=== PATIENT | male | born 1985 | race Caucasian/White ===

== ENCOUNTER 2018-07-17 08:04 | Outpatient (REF) | payer BC, SELFPAY ==
[2018-07-17 13:19] LABS: ALT 38 U/L (12-78); AST 23 U/L (15-37); Albumin 4.2 g/dL (3.4-5.0); Alkaline Phosphatase 57 U/L (46-116); Anion Gap 6.9 mmol/L (3-11); BUN 22 mg/dL (7-18); Bilirubin, Total 0.4 mg/dL (0.2-1.0); CO2 30.1 mmol/L (21.0-32.0); CREATININE 1.18 mg/dL (0.70-1.30); Calcium 9.6 mg/dL (8.5-10.1); Chloride 102 mmol/L (98-107); Glucose 111 mg/dL (70-100); Potassium 4.4 mmol/L (3.5-5.1); Sodium 139 mmol/L (136-145); Total Protein 7.6 g/dL (6.4-8.2)
== END 2018-07-17 08:24 ==
LOC: NCHCN 08:04
PROVIDERS: PCP Nurse Practitioner; Visit Provider Nurse Practitioner
DX: I10 Essential (primary) hypertension (principal)
CPT/HCPCS: 80053

== ENCOUNTER 2020-04-07 09:54 | Outpatient (REF) | payer BC, SELFPAY ==
[2020-04-07 18:38] LABS: ALT 34 U/L (16-63); AST 21 U/L (15-37); Albumin 4.3 g/dL (3.4-5.0); Alkaline Phosphatase 59 U/L (46-116); Anion Gap 8.4 mmol/L (3-11); BUN 19 mg/dL (7-18); Bilirubin, Total 0.3 mg/dL (0.2-1.0); CO2 29.6 mmol/L (21.0-32.0); CREATININE 1.07 mg/dL (0.70-1.30); Calcium 9.3 mg/dL (8.5-10.1); Chloride 103 mmol/L (98-107); Glucose 107 mg/dL (74-106); Potassium 4.3 mmol/L (3.5-5.1); Sodium 141 mmol/L (136-145); Total Protein 8.2 g/dL (6.4-8.2)
== END 2020-04-07 10:14 ==
LOC: NCHCN 09:54
PROVIDERS: PCP Nurse Practitioner; Visit Provider Nurse Practitioner
DX: I10 Essential (primary) hypertension (principal)
CPT/HCPCS: 80053

== ENCOUNTER 2021-06-09 08:37 | Outpatient (REF) | payer BC, SELFPAY ==
[2021-06-09 14:45] LABS: ALT 61 U/L (16-63); AST 30 U/L (15-37); Albumin 4.7 g/dL (3.4-5.0); Alkaline Phosphatase 59 U/L (46-116); Anion Gap 10.6 mmol/L (3-11); BUN 22 mg/dL (7-18); Bilirubin, Total 0.3 mg/dL (0.2-1.0); CO2 26.4 mmol/L (21.0-32.0); CREATININE 1.2 mg/dL (0.70-1.30); Chloride 101 mmol/L (98-107); Glucose 106 mg/dL (74-106); Potassium 4.7 mmol/L (3.5-5.1); Sodium 138 mmol/L (136-145); Total Protein 8.3 g/dL (6.4-8.2)
== END 2021-06-09 08:38 | disposition home or self-care (01) ==
LOC: NCHCN 08:37
PROVIDERS: PCP Nurse Practitioner; Visit Provider Nurse Practitioner
DX: I10 Essential (primary) hypertension (principal)
CPT/HCPCS: 80053

== ENCOUNTER 2022-03-05 16:30 | Outpatient (REF) | payer BC, SELFPAY ==
[2022-03-05 19:56] LABS: ALT 63 U/L (16-63); AST 36 U/L (15-37); Albumin 4.3 g/dL (3.4-5.0); Alkaline Phosphatase 55 U/L (46-116); Anion Gap 9.5 mmol/L (3-11); BUN 16 mg/dL (7-18); Bilirubin, Total 0.5 mg/dL (0.2-1.0); CO2 29.5 mmol/L (21.0-32.0); Calcium 9.6 mg/dL (8.5-10.1); Chloride 101 mmol/L (98-107); Estimated GFR 101.28 (mL/min/1.73m2); Glucose 92 mg/dL (74-106); Potassium 3.9 mmol/L (3.5-5.1); Sodium 140 mmol/L (136-145); Total Protein 8.6 g/dL (6.4-8.2)
== END 2022-03-05 16:31 | disposition home or self-care (01) ==
LOC: NCHCN 16:30
PROVIDERS: PCP Nurse Practitioner; Visit Provider Nurse Practitioner Family
DX: I10 Essential (primary) hypertension (principal)
CPT/HCPCS: 80053

== ENCOUNTER → 2023-05-06 18:35 | Outpatient (CLI) | payer BC, SELFPAY ==
--- NOTE | 2023-05-06 15:11 | DI.RAD_ITS ---
Exam(s) XR ANKLE RT COMPLETE XR FOOT RT COMPLETE EXAM: XR ANKLE RT COMPLETE CLINICAL HISTORY: RT ANKLE PAIN M25.571. TECHNIQUE: 2D digital imaging was performed. Three views of the foot and three views of the ankle. COMPARISON: CR XR FOOT RT COMPLETE from 05/06/2023 FINDINGS: BONES: No acute fracture is present. No bony destructive lesion is seen. JOINTS: The ankle mortise is normally aligned. Joint spaces are maintained. No significant degener ative changes. SOFT TISSUE: Swelling around malleoli. Small elongated soft tissue calcification adjacent to medial malleolus appears chronic. IMPRESSION: Soft tissue swelling around the malleoli, otherwise unremarkable radiographs of the right ankle and f oot. DATA REPOSITORY: RADIATION DOSE DELIVERED:
== END ==
PROVIDERS: PCP Nurse Practitioner; Visit Provider Nurse Practitioner Family
DX: R22.41 Localized swelling, mass and lump, right lower limb (principal); M25.571 Pain in right ankle and joints of right foot
CPT/HCPCS: 73610; 73630

== ENCOUNTER 2023-05-27 15:08 | Outpatient (REF) | payer BC, SELFPAY ==
--- OUTSIDE RECORDS SUMMARY | 2023-05-27 15:11 | XMS_ITS | Continuity of Care Document ---
Author Name Unknown Organization [facility] Address [address] [place] [address] Encounter [facility] FIN NBR [id number] Date(s): 04/09/23 - 04/09/23 [facility] [address] [place] [address]- [place] Encounter Diagnosis Right ankle sprain(Discharge Diagnosis) - 04/09/23 Discharge Disposition: Home f/u Internal Provider Attending Physician: Jose Armando Brady MD Admitting Physician: Jose Armando Brady MD Allergies, Adverse Reactions, Alerts No Known Allergies Functional Status 04/09/23 Family Member Travel History No recent t ravel Recent Travel History No recent travel Other exposure to Infectious Disease Non e Medications Fish Oil 500 mg oral capsule 0 Refill(s) Start Date: 04/09/23 Status: Ordered lisinopril 20 mg oral tablet 20 mg = 1 tab, Oral, Daily, # 30 tab, 0 Refill(s) Start Date: 04/09/23 Status: Ordered Mental Status 04/09/23 Eye Opening Response [place] Spontaneous ly Best Verbal Response Shaun Oriented Best Motor Response Shaun Obeys comman ds Shaun Coma Score 15 Results Radiology Reports * Exam Date Time Procedure Performing Provider Status 04/09/23 8:45 PM XR Ankle Complete 3+ Views Right Beth Mendenhall; Natalia (Verified) Notes: (XR Ankle Complete 3+ Views Right) Reason For Exam: trauma XR Ankle Complete 3+ Views Right PROCEDURE INFORMATION: Exam: XR Right Ankle Exam date and time: 04/09/2023 8:38 PM Age: 37 years old Clinical indication: Pain; Ankle and foot; Right; Additional info: Trauma TECHNIQUE: Imaging protocol: Radiologic exam of the right ankle. Views: 3 or more views. COMPARISON: CR XR FOOT 3 VIEW RIGHT 04/09/2023 8:37 PM FINDINGS: Bones/joints: Bone density is satisfactory. Small chip fracture of the medial malleolus. Minimal distal fibular cortical irregularity. Soft tissues: Significant lateral hindfoot and lateral ankle swelling. Moderate medial ankle swelling. Tiny soft tissue calcifications noted medial midfoot area. IMPRESSION: 1. Possible avulsion fracture medial malleolus. Minimal distal lateral fibular cortical irregularity without definite fracture visible filter follow-up may be of benefit. 2. Significant mediolateral ankle swelling possible ligamentous injury. THIS DOCUMENT HAS BEEN ELECTRONICALLY SIGNED BY TONI CASTRO MD on 04/09/2023 10:05 PM Final Signed by: Toni Castro MD Signed (Electronic Signature): 04/09/2023 10:05 pm * Exam Date Time Procedure Performing Provider Status 04/09/23 8:45 PM XR Foot Complete 3+ Views Right Beth Baig; Auth (Verified) Notes: (XR Foot Complete 3+ Views Right) Reason For Exam: trauma XR Foot Complete 3+ Views Right PROCEDURE INFORMATION: Exam: XR Right Foot Exam date and time: 04/09/2023 8:37 PM Age: 37 years old Clinical indication: Pain; Ankle and foot; Right; Additional info: Trauma TECHNIQUE: Imaging protocol: Radiologic exam of the right foot. Views: 3 or more views. COMPARISON: No relevant prior studies available. FINDINGS: Bones/joints: Normal. Soft tissues: The significant lateral ankle swelling. IMPRESSION: Lateral ankle swelling. No acute foot fracture seen. THIS DOCUMENT HAS BEEN ELECTRONICALLY SIGNED BY TONI CASTRO MD on 04/09/2023 10:04 PM Final Signed by: Toni Castro MD Signed (Electronic Signature): 04/09/2023 10:04 pm Vital Signs Most recent to oldest [Reference Range]: 1 2 3 Temperature Temporal Artery [36-38 Deg C] 36.3 Deg C (04/09/23 8:00 PM) Peripheral Pulse Rate [60-100 bpm] 102 bpm *HI* (04/09/23 8:30 PM) 106 bpm *HI* (04/09/23 8:15 PM) 128 bpm *HI* (04/09/23 8:00 PM) Respiratory Rate [12-24 br/min] 16 br/min (04/09/23 8:00 PM) Blood Pressure [90-140/60-90 mmHg] 126/72mmHg (04/09/23 8:30 PM) 144/96mmHg *HI* (04/09/23 8:15 PM) 144/96mmHg *HI* (04/09/23 8:00 PM) Mean Arterial Pressure Cuff 89 mmHg (04/09/23 8:30 PM) 109 mmHg (04/09/23 8:15 PM) Weight 106.00 kg (04/09/23 8:00 PM) Weight Dosing 106.00 kg (04/09/23 8:08 PM) Height 185.000 cm (04/09/23 8:00 PM) Height/Length Dosing 185.000 cm (04/09/23 8:08 PM) Body Mass Index 31.000 kg/m2 (04/09/23 8:00 PM) Social History Social History Type Response Tobacco Never tobacco user T obacco Use:. Sex Hospital Discharge Instructions Patient Education 04/09/2023 19:50:47 Ankle Sprain Ankle Sprain An ankle sprain is a stretch or tear in a ligament in the ankle. Ligaments are tissues that connectbones to each other. The two most common types of ankle sprains are: ??? Inversion sprain. This happens when the foot turns inward and the ankle rolls outward. It affects the ligament on the outside of the foot (lateral ligament). ??? Eversion sprain. This happens when the foot turns outward and the ankle rolls inward. It affects the ligament on the inner side of the foot (medial ligament). What are the causes? This condition is often caused by accidentally rolling or twisting the ankle. What increases the risk? You are more likely to develop this condition if you play sports. What are the signs or symptoms? Symptoms of this condition include: ??? Pain in your ankle. ??? Swelling. ??? Bruising. This may develop right after you sprain your ankle or 1???2 days later. ??? Trouble standing or walking, especially when you turn or change directions. How is this diagnosed? This condition is diagnosed with: ??? A physical exam. During the exam, your health care provider will press on certain parts of yourfoot and ankle and try to move them in certain ways. ??? X-ray imaging. These may be taken to see how severe the sprain is and to check for broken bones. How is this treated? This condition may be treated with: ??? A brace or splint. This is used to keep the ankle from moving until it heals. ??? An elastic bandage. This is used to support the ankle. ??? Crutches. ??? Pain medicine. ??? Surgery. This may be needed if the sprain is severe. ??? Physical therapy. This may help to improve the range of motion in the ankle. Follow these instructions at home: If you have a brace or a splint: ??? Wear the brace or splint as told by your health care provider. Remove it only as told by your health care provider. ??? Loosen the brace or splint if your toes tingle, become numb, or turn cold and blue. ??? Keep the brace or splint clean. ??? If the brace or splint is not waterproof: ??? Do not let it get wet. ??? Cover it with a watertight covering when you take a bath or a shower. If you have an elastic bandage (dressing): ??? Remove it to shower or bathe. ??? Try not to move your ankle much, but wiggle your toes from time to time. This helps to prevent swelling. ??? Adjust the dressing to make it more comfortable if it feels too tight. ??? Loosen the dressing if you have numbness or tingling in your foot, or if your foot becomes coldand blue. Managing pain, stiffness, and swelling ??? Take azae-hms-pleopgo and prescription medicines only as told by your health care provider. ??? For 2???3 days, keep your ankle raised (elevated) above the level of your heart as much as possible. ??? If directed, put ice on the injured area: ??? If you have a removable brace or splint, remove it as told by your health care provider. ??? Put ice in a plastic bag. ??? Place a towel between your skin and the bag. ??? Leave the ice on for 20 minutes, 2???3 times a day. General instructions ??? Rest your ankle. ??? Do not use the injured limb to support your body weight until your health care provider says that you can. Use crutches as told by your health care provider. ??? Do not use any products that contain nicotine or tobacco, such as cigarettes, e-cigarettes, andchewing tobacco. If you need help quitting, ask your health care provider. ??? Keep all follow-up visits as told by your health care provider. This is important. Contact a health care provider if: ??? You have rapidly increasing bruising or swelling. ??? Your pain is not relieved with medicine. Get help right away if: ??? Your foot or toes become numb or blue. ??? You have severe pain that gets worse. Summary ??? An ankle sprain is a stretch or tear in a ligament in the ankle. Ligaments are tissues that connect bones to each other. ??? This condition is often caused by accidentally rolling or twisting the ankle. ??? Symptoms include pain, swelling, bruising, and trouble walking. ??? To relieve pain and swelling, put ice on the affected ankle, raise your ankle above the level of your heart, and use an elastic bandage. ??? Keep all follow-up visits as told by your health care provider. This is important. This information is not intended to replace advice given to you by your health care provider. Make sure you discuss any questions you have with your health care provider. Document Revised: 08/06/2021 Document Reviewed: 08/06/2021 [employer] Patient Education ?? 2022 [employer]. Follow Up Care 04/09/2023 20:00:50 With:Follow up with primary care provider Address:Unknown When:1 month With:Chapincito Curtis MD Address: [address] [place] [id number]- When:1 to 2 weeks Comments:Or one of his colleagues Physician Emergency department Note * Jose Armando Brady MD: PERFORM Event Display: ED Note Physician Authored Date: [id number] DREA BABCOCK :1985 Age:37 years Sex:Male Visit Date:04/09/2023 Basic Information Time Seen: Jose Armando Brady MD / 04/09/2023 20:03 Chief Complaint pt digging a hole steppe back into it felt a pop. has a golf ball sized hematoma on right ankle. History Of Present Illness: Healthy 37-year-old male??stepped into a hole??where he was going to pour some concrete heard a crunch??and has an unknown??other mechanism of injury to the foot. ??Unable to weight-bear since. ??Marked swelling immediately on the lateral aspect but pain also medially.?? Good distal sensation.?? Noother injury. Review of Systems: No head or neck injury. ??No knee injury. ??Mild knee pain. Physical Exam Vitals & Measurements T:??36.3?C ??(Temporal Artery)?? HR:??102??(Peripheral)?? RR:??16?? BP:??126/72?? SpO2:??95%?? HT:??185.000??cm?? WT:??106.00??kg?? BMI:??31.000?? Pain Score:??8?? O2 Therapy:??Room air?? Examination reveals dramatic swelling over the lateral malleolus completely obliterating it visually. ??Normal dorsalis pedis pulse. ??Normal cap refill.?? Hurts to move his toes.?? Pain over the medial malleolus with mild swelling. ??Pain over the base of the fifth metatarsal.?? No pain over the medial talus.?? Cannot manipulate the ankle due to pain and traumatic swelling.?? No ecchymoses. Medical Decision Making: X-rays reviewed by me of the ankle and foot revealing no evidence of fracture.?? Likely significantsprain.?? Patient given a boot due to the traumatic swelling,??has crutches, will move from furtherto full weightbearing as tolerated and follow-up once the swelling is down for more comprehensive re assessment in 5 to 10 days time with primary care or orthopedics. Procedure No Qualifying Data Assessment/Plan 1.??Right ankle sprain??S93.401A Elevation, ice, compression. ??Jed and cast boot. ??Crutches further to full weightbearing. ??Follow-up 5 to 10 days for reassessment??to decide on severity of ankle sprain is not able to assess withmarked swelling today.?? No evidence of fracture on x-ray Orders: XR Ankle Complete 3+ Views Right, 04/09/23 20:11:00 EDT, Stat, Reason: trauma, Transport Mode: Wheelchair XR Foot Complete 3+ Views Right, 04/09/23 20:11:00 EDT, Stat, Reason: trauma, Transport Mode: Wheelchair Patient Education Ankle Sprain Follow Up With When Contact Information Follow up with primary care provider Within 1 month Additional Instructions: Chapincito Curtis MD Within 1 to 2 weeks [address] [place] [address]- Additional Instructions: Or one of his colleagues Medication Reconciliation Unchanged lisinopril (lisinopril 20 mg oral tablet)1 tab Oral (given by mouth) every day. ?? omega-3 polyunsaturated fatty acids (Fish Oil 500 mg oral capsule) Problem List/Past Medical History Ongoing No qualifying data Historical No qualifying data Allergies No Known Allergies Social History Alcohol Current, Beer, 1-2 times per month Electronic Cigarette/Vaping Electronic Cigarette Use: Never. Tobacco Never tobacco user Tobacco Use:. Electronically Signed on 04/09/23 10:12 PM Jose Armando Brady MD Emergency department Discharge instructions * Jose Armando Brady MD: PERFORM Event Display: ED Discharge Information Authored Date: [id number] DREA BABCOCK :1985 Age:37 years Sex:Male Visit Date:04/09/2023 Discharge Instructions We would like to thank you for allowing us to assist you with your healthcare needs. The following includes patient education materials and information regarding your injury/illness. Diagnosis from Today's Visit Right ankle sprain Discharge Vitals Temperature??(Temporal Artery) 97.3 ??F (36.3 ??C) Heart Rate??(Peripheral) 102 Respiratory Rate?? 16 Blood Pressure?? 126/72?? Height?? 72.83 in (185.000 cm) Weight?? 233.73 lb (106.00 kg) BMI?? 31.000 Allergies No Known Allergies What to Do Next Instructions from Your Care Team [place]: You have a significant sprain of your right ankle. ??There is no evidence of fracture on x-ray which is reassuring. ??There is dramatic swelling. ??Keep it elevated??and keep some compression with an Jed wrap??and cast boot??use. ??Progressed from lightly touching down [feather weightbearing]??to full weightbearing as tolerated using her crutches.?? Follow-up once the swelling is down in 5 to 10 days with primary care or the [facility] orthopedics??for??reassessment to fully evaluate the degree of sprain. ??Because of the swelling this is not possible in the emergency department today. You Need to Schedule the Following Appointments Follow Up with??Follow up with primary care provider When:??Within 1 month Follow Up with??Chapincito Curtis MD When:??Within 1 to 2 weeks Why: Or one of his colleagues Where: [address] [place], [place] [id number] You were treated today on an emergency basis; it may be sorensen to contact your primary care provider to notify them of your visit today. You may have been referred to your regular doctor or a specialist, please follow up as instructed. If your condition worsens or you can't get in to see the doctor, contact the Emergency Department. Medications What How Much When Instructions Next Dose Unchanged lisinopril (lisinopril 20 mg oral tablet) 1 tab Oral (given by mouth) Every day Unchanged omega-3 polyunsaturated fatty acids (Fish Oil 500 mg oral capsule) Education Materials Ankle Sprain An ankle sprain is a stretch or tear in a ligament in the ankle. Ligaments are tissues that connectbones to each other. The two most common types of ankle sprains are: ? Inversion sprain. This happens when the foot turns inward and the ankle rolls outward. It affects the ligament on the outside of the foot (lateral ligament). ? Eversion sprain. This happens when the foot turns outward and the ankle rolls inward. It affects the ligament on the inner side of the foot (medial ligament). What are the causes? This condition is often caused by accidentally rolling or twisting the ankle. What increases the risk? You are more likely to develop this condition if you play sports. What are the signs or symptoms? Symptoms of this condition include: ? Pain in your ankle. ? Swelling. ? Bruising. This may develop right after you sprain your ankle or 1???2 days later. ? Trouble standing or walking, especially when you turn or change directions. How is this diagnosed? This condition is diagnosed with: ? A physical exam. During the exam, your health care provider will press on certain parts of your foot and ankle and try to move them in certain ways. ? X-ray imaging. These may be taken to see how severe the sprain is and to check for broken bones. How is this treated? This condition may be treated with: ? A brace or splint. This is used to keep the ankle from moving until it heals. ? An elastic bandage. This is used to support the ankle. ? Crutches. ? Pain medicine. ? Surgery. This may be needed if the sprain is severe. ? Physical therapy. This may help to improve the range of motion in the ankle. Follow these instructions at home: If you have a brace or a splint: ? Wear the brace or splint as told by your health care provider. Remove it only as told by your health care provider. ? Loosen the brace or splint if your toes tingle, become numb, or turn cold and blue. ? Keep the brace or splint clean. ? If the brace or splint is not waterproof: ? Do not let it get wet. ? Cover it with a watertight covering when you take a bath or a shower. If you have an elastic bandage (dressing): ? Remove it to shower or bathe. ? Try not to move your ankle much, but wiggle your toes from time to time. This helps to prevent swelling. ? Adjust the dressing to make it more comfortable if it feels too tight. ? Loosen the dressing if you have numbness or tingling in your foot, or if your foot becomes cold andblue. Managing pain, stiffness, and swelling ? Take yjxk-ctg-csquiyn and prescription medicines only as told by your health care provider. ? For 2???3 days, keep your ankle raised (elevated) above the level of your heart as much as possible. ? If directed, put ice on the injured area: ? If you have a removable brace or splint, remove it as told by your health care provider. ? Put ice in a plastic bag. ? Place a towel between your skin and the bag. ? Leave the ice on for 20 minutes, 2???3 times a day. General instructions ? Rest your ankle. ? Do not use the injured limb to support your body weight until your health care provider says that you can. Use crutches as told by your health care provider. ? Do not use any products that contain nicotine or tobacco, such as cigarettes, e- cigarettes, and chewing tobacco. If you need help quitting, ask your health care provider. ? Keep all follow-up visits as told by your health care provider. This is important. Contact a health care provider if: ? You have rapidly increasing bruising or swelling. ? Your pain is not relieved with medicine. Get help right away if: ? Your foot or toes become numb or blue. ? You have severe pain that gets worse. Summary ? An ankle sprain is a stretch or tear in a ligament in the ankle. Ligaments are tissues that connectbones to each other. ? This condition is often caused by accidentally rolling or twisting the ankle. ? Symptoms include pain, swelling, bruising, and trouble walking. ? To relieve pain and swelling, put ice on the affected ankle, raise your ankle above the level of your heart, and use an elastic bandage. ? Keep all follow-up visits as told by your health care provider. This is important. This information is not intended to replace advice given to you by your health care provider. Make sure you discuss any questions you have with your health care provider. Document Revised: 08/06/2021 Document Reviewed: 08/06/2021 [employer] Patient Education ?? 2022 [employer] Patient/Top Coater Signature Patient Name:DREA BABCOCK I have received this information and my questions have been answered. Patient/Top Coater Name: Patient/Top Coater Signature: Relationship to Patient: Witness Name/Signature: Date: Electronically Signed on: 04/09/2023 20:52 EDTSigned by:JOS Patient Care team information Care Team Personnel Name: Jose Armando Brady MD Position: Physician Member Role: Admitting Physician Address: Address: [address] [place] [phone] [place] Name: Radha Staton Position: Nurse Member Role: ED Nurse
[2023-05-27 18:39] LABS: ALT 37 U/L (16-63); AST 23 U/L (15-37); Alkaline Phosphatase 58 U/L (46-116); Anion Gap 7.5 mmol/L (3-11); BUN 17 mg/dL (7-18); Bilirubin, Total 0.3 mg/dL (0.2-1.0); CO2 31.5 mmol/L (21.0-32.0); CREATININE 1.1 mg/dL (0.70-1.30); Calcium 9.1 mg/dL (8.5-10.1); Calculated LDL 100 mg/dL (<100); Chloride 102 mmol/L (98-107); Cholesterol 200 mg/dL (<200); Estimated GFR 89.22 (mL/min/1.73m2); Glucose 118 mg/dL (74-106); HDL Cholesterol 41 mg/dL (40-60); Potassium 4.2 mmol/L (3.5-5.1); Sodium 141 mmol/L (136-145); Total Protein 7.9 g/dL (6.4-8.2); Triglyceride 299 mg/dL (<150)
== END 2023-05-27 15:09 | disposition home or self-care (01) ==
LOC: NCHCN 15:08
PROVIDERS: PCP Nurse Practitioner; Visit Provider Nurse Practitioner Family
DX: I10 Essential (primary) hypertension (principal); Z13.220 Encounter for screening for lipoid disorders
CPT/HCPCS: 80053; 80061